=== PATIENT | female | born 1965 | race Caucasian/White ===

== ENCOUNTER → 2016-06-30 | Day surgery (SDC) | payer BC ==
[~2016-06-30] VITALS: Ht 162.6 cm; Wt 52.3 kg
[~2016-06-30] MED LIST: ATV/1 PO; CALC600T9 PO; CETI10TA84 PO; DIPH1TAB PO; FLAX100024 PO; LIDOCAINE HCL 2% 2 ML VIAL (20MG/ML) ONE; LYSI100010 PO; MIDAZOLAM HCL 1 MG/ML 2ML VIAL ONE; MULT-506 PO; MULT1PAK42 PO; PROPOFOL IV EMULSION 10 MG/ML 20 ML VIAL IV ONE; RST/30 PO; ZOLP5TAB PO; [UNRECOGNIZED DRUG - OTHER] PO
[2016-06-30 09:30] VITALS: Ht 162.6 cm; Wt 52.3 kg
--- NOTE | 2016-06-30 10:05 | Endo History and Physical ---
History & Physical Date of Service: Jun 30, 2016. Chief Complaint: SCREENING Referring Physician: QUINTEN GUTIERREZ History of Present Illness 51 yo CF who presents for screening colonoscopy. Past Surgical History Hx Cardiac Surgery: No Hx Internal Defibrillator: No Hx Pacemaker: No Hx Abdominal Surgery: No Hx of Implantable Prosthesis: No Hx Post-Op Nausea and Vomiting: No Hx Cancer Surgery: No Hx Thoracic Surgery: No Hx Orthopedic: Yes (LT WRIST CYST REMOVAL) Hx Urinary Tract Surgery: No Family History None Social History Smoking Status: Former Smoker Hx Substance Use: No Hx Alcohol Use: Yes (OCCASIONAL) Allergies Coded Allergies: Amoxicillin (Verified Allergy, Unknown, HIVES, 06/30/16) Sulfa Drugs (Verified Allergy, Unknown, HIVES, 06/30/16) Droperidol (Verified Adverse Reaction, Mild, ANXIOUS, 06/30/16) Acetaminophen (Verified Adverse Reaction, Unknown, GI UPSET, 06/30/16) Hydrocodone (Verified Adverse Reaction, Unknown, GI UPSET, 06/30/16) Current Medications Reported Home Medications Medications Dose Route/Sig Max Daily Dose Days Date Category Flaxseed Oil (Flaxseed (Linseed)) 1,000 Mg Cap 1 Tab PO HS 03/03/16 Reported Calcium + D (Calcium Carbonate-Vitamin D) 1 Tab Tab 1 Tab PO HS 03/03/16 Reported Lysine (Lysine Hcl) 1,000 Mg Tab 1 Tab PO HS 03/03/16 Reported [Celium Husk Powder] 1 Dose PO QAM 03/03/16 Reported Emergen-C Immune (Multiple Vitamins W/ Minerals) 1 Gary Gary 1 Dose PO QAM 03/03/16 Reported Multivitamin (Multivitamins) Tab 1 Tab PO HS 03/03/16 Reported Ativan (Lorazepam) 1 Mg Tab 1 Mg PO HS PRN 03/03/16 Reported Ambien (Zolpidem Tartrate) 5 Mg Tab 5 Mg PO HS PRN 03/03/16 Reported Restoril (Temazepam) 30 Mg Cap 30 Mg PO HS 03/03/16 Reported Benadryl Allergy (Diphenhydramine Hcl) 25 Mg Tab 1 Tab PO HS PRN 03/03/16 Reported Zyrtec (Cetirizine HCl) 10 Mg Tab 10 Mg PO HS 03/03/16 Reported Vital Signs Weight (Kilograms): 52.27 Height (Feet): 5 Height (Inches): 4 Date Time Temp Pulse Resp B/P Pulse Ox O2 Delivery O2 Flow Rate FiO2 06/30/16 09:45 36.4 93 18 107/58 96 Room Air Physical Exam General Appearance: WD/WN, no apparent distress Respiratory/Chest: Auscultation: breath sounds normal Cardiovascular: Heart Auscultation: RRR Abdomen: Bowel Sounds: normal Inspection & Palpation: soft, non-distended, no tenderness, guarding & rebound Assessment and Plan Assessment: 51 yo CF who presents for screening colonoscopy. Plan: Proceed with colonoscopy.
--- NOTE | 2016-06-30 10:34 | Discharge Instructions ---
Endoscopy Patient Instructions Date / Procedure(s) Performed Jun 30, 2016. Allergy Information Coded Allergies: Amoxicillin (Verified Allergy, Unknown, HIVES, 06/30/16) Sulfa Drugs (Verified Allergy, Unknown, HIVES, 06/30/16) Droperidol (Verified Adverse Reaction, Mild, ANXIOUS, 06/30/16) Acetaminophen (Verified Adverse Reaction, Unknown, GI UPSET, 06/30/16) Hydrocodone (Verified Adverse Reaction, Unknown, GI UPSET, 06/30/16) Discharge Date / Findings Jun 30, 2016. Internal hemorrhoids Medication Instructions OK to resume all medications today as prescribed. Reported Home Medications Medications Dose Route/Sig Max Daily Dose Days Date Category Flaxseed Oil (Flaxseed (Linseed)) 1,000 Mg Cap 1 Tab PO HS 03/03/16 Reported Calcium + D (Calcium Carbonate-Vitamin D) 1 Tab Tab 1 Tab PO HS 03/03/16 Reported Lysine (Lysine Hcl) 1,000 Mg Tab 1 Tab PO HS 03/03/16 Reported [Celium Husk Powder] 1 Dose PO QAM 03/03/16 Reported Emergen-C Immune (Multiple Vitamins W/ Minerals) 1 Gary Gary 1 Dose PO QAM 03/03/16 Reported Multivitamin (Multivitamins) Tab 1 Tab PO HS 03/03/16 Reported Ativan (Lorazepam) 1 Mg Tab 1 Mg PO HS PRN 03/03/16 Reported Ambien (Zolpidem Tartrate) 5 Mg Tab 5 Mg PO HS PRN 03/03/16 Reported Restoril (Temazepam) 30 Mg Cap 30 Mg PO HS 03/03/16 Reported Benadryl Allergy (Diphenhydramine Hcl) 25 Mg Tab 1 Tab PO HS PRN 03/03/16 Reported Zyrtec (Cetirizine HCl) 10 Mg Tab 10 Mg PO HS 03/03/16 Reported Provider Instructions Activity Restrictions - No exercising or heavy lifting for 24 hours. - Do not drink alcohol the day of the procedure. - Do not drive a car or operate machinery until the day after the procedure. - Do not make any important decisions or sign important papers in 24 hours after the procedure. Following Day: - Return to full activity which may include returning to work/school. Diet Start your diet with liquids and light foods (jello, soup, juice, toast). Then eat your usual diet if not nauseated. Treatment For Common After Affects For mild abdominal pain, bloating, or excessive gas: - Rest - Eat lightly - Lie on right side Follow-Up Information Follow-up with QIUNTEN GUTIERREZ as scheduled Anesthesia Information What You Should Know You have had a procedure that required some medicine to reduce anxiety and discomfort. This treatment is called moderate sedation. After receiving the treatment, you may be sleepy, but you will be able to breathe on your own. The effects of the treatment may last for several hours. Follow these instructions along with Activity/Diet recommendations noted above: * Do NOT do anything where dizziness or clumsiness would be dangerous. * Rest quietly at home today, then you can be up and about tomorrow. * Have a responsible person stay with you the rest of today. * You may have had an I.V. today. If so, you may take the dressing off later today. Recommendations Call your doctor if: * Trouble breathing * Continuous vomiting for more than 24 hours * Temperature above 101 degrees * Severe abdominal pain or bloating * Pain not relieved by pain medicine ordered * There is increased drainage or redness from any incision * A large amount of rectal bleeding greater than 2-3 tablespoons. (If you had a polyp/s removed or have hemorrhoids, a small amount of blood - from the rectum is to be expected.) * You have any unanswered questions or concerns. IN THE EVENT OF A SERIOUS EMERGENCY, GO TO THE NEAREST EMERGENCY ROOM Your discharge instructions were prepared by provider Fred Choudhury. Patient Instructions Signature Page Michelle Gaines Patient (or Guardian) Signature/Date: I have read and understand the instructions given to me by my caregivers. Caregiver/RN/Doctor Signature/Date: The above-named patient and/or guardian has received patient instructions on this date. + Original Patient Signature Page (only) stays with chart. Please make copy for patient.
--- NOTE | 2016-06-30 10:34 | GI REPORT ---
Procedure Date: 06/30/2016 10:15 AM Procedure: Colonoscopy Indications: Screening for colorectal malignant neoplasm Medicines: Monitored Anesthesia Care Complications: No immediate complications. Estimated Blood Loss: Estimated blood loss: none. Procedure: Pre-Anesthesia Assessment: - Prior to the procedure, a History and Physical was performed, and patient medications and allergies were reviewed. The patient's tolerance of previous anesthesia was also reviewed. The risks and benefits of the procedure and the sedation options and risks were discussed with the patient. All questions were answered, and informed consent was obtained. Prior Anticoagulants: The patient has taken no previous anticoagulant or antiplatelet agents. ASA Grade Assessment: II - A patient with mild systemic disease. After reviewing the risks and benefits, the patient was deemed in satisfactory condition to undergo the procedure. After I obtained informed consent, the scope was passed under direct vision. Throughout the procedure, the patient's blood pressure, pulse, and oxygen saturations were monitored continuously. The scope was introduced through the anus and advanced to the terminal ileum. The colonoscopy was performed without difficulty. The patient tolerated the procedure well. The quality of the bowel preparation was good. The terminal ileum, ileocecal valve, appendiceal orifice, and rectum were photographed. Findings: Non-bleeding internal hemorrhoids were found during retroflexion. The hemorrhoids were small. The exam was otherwise without abnormality. Impression: - Non-bleeding internal hemorrhoids. - The examination was otherwise normal. - No specimens collected. Recommendation: - Resume previous diet. - Continue present medications. - Repeat colonoscopy in 10 years for surveillance. - Return to primary care physician as previously scheduled. Fred Choudhury DO 06/30/2016 10:33:09 AM This report has been signed electronically. Note Initiated On: 06/30/2016 10:15 AM I attest to the content of the Intraoperative Record and orders documented therein, exceptions below
[2016-06-30 11:04] VITALS: BP 101/55; PULSE 70; O2SAT 99
--- NOTE | 2016-06-30 11:16 | Anesthesiology Progress Note ---
Anesthesia Post Op Note Date & Time Jun 30, 2016 at 11:15 Vital Signs Pain Intensity: 0 Vital Signs Past 12 Hours Date Time Temp Pulse Resp B/P Pulse Ox O2 Delivery O2 Flow Rate FiO2 06/30/16 11:04 70 18 101/55 99 Room Air 06/30/16 10:49 77 18 90/51 98 Room Air 06/30/16 10:34 36.4 73 20 90/44 95 Room Air 06/30/16 09:45 36.4 93 18 107/58 96 Room Air Notes Mental Status: alert / awake / arousable, participated in evaluation Pt Amnestic to Procedure: Yes Nausea / Vomiting: adequately controlled Pain: adequately controlled Airway Patency, RR, SpO2: stable & adequate BP & HR: stable & adequate Hydration State: stable & adequate Anesthetic Complications: no major complications apparent
== END | disposition home or self-care (01) ==
LOC: C.GI 09:23
PROVIDERS: ATTEND Internal Medicine
DX: Z12.11 Encounter for screening for malignant neoplasm of colon (principal); K64.8 Other hemorrhoids; F41.9 Anxiety disorder, unspecified; Z98.890 Other specified postprocedural states; Z90.89 Acquired absence of other organs; Z87.891 Personal history of nicotine dependence; Z88.0 Allergy status to penicillin; Z88.1 Allergy status to other antibiotic agents; Z88.2 Allergy status to sulfonamides; Z68.20 Body mass index [BMI] 20.0-20.9, adult

== ENCOUNTER → 2016-07-17 | Outpatient (CLI) | payer BC ==
[~2016-07-17] MED LIST changes: -LIDOCAINE HCL 2% 2 ML VIAL (20MG/ML) ONE; -MIDAZOLAM HCL 1 MG/ML 2ML VIAL ONE; -PROPOFOL IV EMULSION 10 MG/ML 20 ML VIAL IV ONE
== END | disposition home or self-care (01) ==
LOC: C.PAPS 10:27
PROVIDERS: ATTEND Obstetrics & Gynecology
DX: Z01.419 Encounter for gynecological examination (general) (routine) without abnormal findings (principal)

== ENCOUNTER → 2016-08-19 | Outpatient (CLI) | payer BC ==
[~2016-08-19] MED LIST changes: -DIPH1TAB PO; +DIPH1TAB87 PO
== END | disposition home or self-care (01) ==
LOC: C.RDSM 13:56
PROVIDERS: ATTEND Family Medicine
DX: M25.511 Pain in right shoulder (principal)

== ENCOUNTER → 2017-03-31 | Outpatient (CLI) | payer BC ==
--- NOTE | 2017-04-02 08:14 | MAMMOGRAPHY REPORT ---
BILATERAL DIGITAL SCREENING MAMMOGRAM TOMOSYNTHESIS WITH CAD: 03/31/2017 CLINICAL HISTORY: Routine screening. Patient has no complaints. TECHNIQUE: Breast tomosynthesis in addition to standard 2D mammography was performed. Current study was also evaluated with a Computer Aided Detection (CAD) system. COMPARISON: Comparison is made to exams dated: 02/11/2016 mammogram, 12/19/2014 mammogram, 09/05/2013 m ammogram, 08/30/2012 mammogram, 08/25/2011 mammogram, and 08/22/2010 mammogram - [facility]. BREAST COMPOSITION: The tissue of both breasts is heterogeneously dense, which may obscure small mas ses. FINDINGS: The parenchymal pattern is unchanged. There are diffuse bilateral punctate benign-appeari ng microcalcifications. No developing mass, architectural distortion or cluster of suspicious microc alcifications is seen in either breast. IMPRESSION: ACR BI-RADS CATEGORY 2: BENIGN There is no mammographic evidence of malignancy. A 1 year screening mammogram is recommended. The pa tient will receive written notification of the results. Approximately 10% of breast cancers are not detected with mammography. A negative mammographic report should not delay biopsy if a clinically suggestive mass is present. Tabatha Medina M.D. ay/:03/31/2017 16:30:47 Steam Train Driver: Zoila DAVIS)(Kevin), [facility] letter sent: Normal 1/2 BI-RADS Code: ACR BI-RADS Category 2: Benign
== END | disposition home or self-care (01) ==
LOC: C.MAMM 15:19
PROVIDERS: ATTEND Internal Medicine
DX: Z12.31 Encounter for screening mammogram for malignant neoplasm of breast (principal)